=== PATIENT | female | born 2000 | race Two or more races ===

== ENCOUNTER 2018-06-11 04:50 | Emergency (ER) | payer OTHER, MEDICAID ==
[2018-06-11] MEDS ORDERED: Al Hydrox/Mg Hydrox/Simet LIQ* 30 ML UDC PO ONE (05:17)
[2018-06-11] MEDS ORDERED: Lidocaine 2% VISCOUS* 15 ML UDC PO ONE (05:17)
--- NOTE | 2018-06-11 05:17 | ED ---
Abdominal Pain/Female - HPI Summary HPI Summary: A 18 y/o F presents to ED with c/o constant abd pain onset yesterday afternoon and not improving. Pain is described as sharp. She ate Slov[place] food tonight that did make it worse. Denies fever, chills, urinary sx, melena. She states she has had abd pain due to stress previously as well as diarrhea. She's having episodes of diarrhea which are usual. Shes had prelim exams this week. She is a [employer] student. [facility]: Currently. No past abd surgeries. - History of Current Complaint Chief Complaint: EDAbdPain Stated Complaint: ABD PAIN Time Seen by Provider: 06/11/18 05:05 Hx Obtained From: Patient, Other: - friend present Onset/Duration: Gradual Onset, Lasting Hours Timing: Constant Severity Initially: Moderate Severity Currently: Moderate Pain Intensity: 5 Pain Scale Used: 0-10 Numeric Location: Diffuse Character: Sharp Aggravating Factor(s): Food Associated Signs and Symptoms: Positive: Other: - neg: chills, melena. Negative : Fever, Urinary Symptoms Allergies/Adverse Reactions: Allergies Allergy/AdvReac Type Severity Reaction Status Date / Time No Known Allergies Allergy Verified 06/11/18 04:55 PMH/Surg Hx/FS Hx/Imm Hx Previously Healthy: Yes Sensory History: Denies: Hx Deafness Opthamlomology History: Denies: Hx Legally Blind EENT History: Denies: Hx Deafness Infectious Disease History: No Infectious Disease History: Denies: Traveled Outside the [place] in Last 30 Days - Social History Occupation: Student Lives: Dormitory/Roommates Review of Systems Negative: Fever, Chills Positive: Abdominal Pain, Other - neg: melena Negative: dysuria, hematuria All Other Systems Reviewed And Are Negative: Yes Physical Exam - Summary Physical Exam Summary: Appearance: Well-appearing, Well-nourished, lying in bed comfortably Skin: Warm, dry, no obvious rash Eyes: sclera anicteric, no conjunctival pallor ENT: mucous membranes moist, pharynx appears normal Neck: Supple, nontender Respiratory: Clear to auscultation, no signs of respiratory distress Cardiovascular: Normal S1, S2. No murmurs. Normal distal pulses in tibial and radial bilaterally. Abdomen: Soft, normal active bowel sounds present. Mild epigastric tenderness without peritoneal signs. Musculoskeletal: Normal, Strength/ROM Intact Neurological: A&Ox3, awake and alert, mentation is normal, speech is fluent and appropriate Psychiatric: affect is normal, does not appear anxious or depressed Triage Information Reviewed: Yes Vital Signs On Initial Exam: Initial Vitals Temp Pulse Resp BP Pulse Ox 97.4 F 95 16 131/79 100 06/11/18 04:53 06/11/18 04:53 06/11/18 04:53 06/11/18 04:53 06/11/18 04:53 Vital Signs Reviewed: Yes Diagnostics - Vital Signs Vital Signs Temp Pulse Resp BP Pulse Ox 06/11/18 04:53 97.4 F 95 16 131/79 100 - Laboratory Result Diagrams: 06/11/18 05:48 06/11/18 05:48 Lab Statement: Any lab studies that have been ordered have been reviewed, and results considered in the medical decision making process. Abdominal Pain Fem Course/Dx - Course Course Of Treatment: Pt is a 18 y/o F presenting with constant, sharp abd pain onset yesterday afternoon and not improving. Pt is a [employer] student and she notes a lot of stress recently. PE showed mild epigastric tenderness but no peritoneal signs. Bloodwork is unremarkable. UA shows 1+ RBC and 1+ blood. Her pain appears to be functional and she does not have a concerning history or exam for serious intra-abdominal process. Lab work is reassuringly unremarkable. Patient is feeling better after a GI cocktail. I believe she is stable for discharge home, and asked her to take antacids or perhaps Pepcid when she has symptoms. Pt will be discharged to f/u with PCP. Pt is hemodynamically stable and A&Ox3. - Diagnoses Provider Diagnoses: Gastritis Discharge - Sign-Out/Discharge Documenting (check all that apply): Patient Departure - DC - Discharge Plan Condition: Improved Disposition: HOME Patient Education Materials: Gastritis (ED) Referrals: [facility] - [place] [Primary Care Provider] - - Billing Disposition and Condition Condition: IMPROVED Disposition: Home - Attestation Statements Document Initiated by Scribe: Yes Documenting Scribe: Nahid Pitts Provider For Whom Scribe is Documenting (Include Credential): Dr. Timothy Darling MD Scribe Attestation: I, Nahid Pitts, scribed for Dr. Timothy Darling MD on 06/11/18 at 0650. Scribe Documentation Reviewed: Yes Provider Attestation: The documentation as recorded by the scribe, Nahid Pitts accurately reflects the service I personally performed and the decisions made by me, Dr. Timothy Darling MD
[2018-06-11 06:00] LABS: ABS Basophils 0.1 10^3/ul (0-0.2); ABS Eosinophils 0.1 10^3/ul (0-0.6); ABS Lymphocytes 2.2 10^3/ul (1.0-4.8); ABS Monocytes 0.6 10^3/ul (0-0.8); ABS Neutrophils 4.9 10^3/ul (1.5-7.7); ABS Nucleated RBC 0 10^3/ul; Eosinophil % 1.5 % (0-6); Hematocrit 37 % (35-47); Hemoglobin 12.6 g/dl (12.0-16.0); Lymphocyte % 27.4 % (25-47); Mean Corpuscular HGB Conc 34 g/dl (31-36); Mean Corpuscular Hemoglobin 29 pg (27-31); Mean Corpuscular Volume 85 fL (80-97); Mean Platelet Volume 8.2 um3 (7.4-10.4); Nucleated Red Blood Cells % 0.1; Platelet Count 276 10^3/ul (150-450); Red Cell Distribution Width 14 % (10.5-15); White Blood Count 7.9 10^3/ul (3.5-10.8)
[2018-06-11 06:26] LABS: EGFR Non-African American 150.3 (>60)
[2018-06-11 06:42] LABS: Urine Appearance Cloudy; Urine Blood 1+ (Negative); Urine Color Yellow; Urine Ketones Negative (Negative); Urine Protein Negative (Negative); Urine Red Blood Cell 1+(3-5/hpf) (Absent); Urine Specific Gravity 1.011 (1.010-1.030); Urine Urobilinogen Negative (Negative); Urine White Blood Cell Trace(0-5/hpf) (Absent)
[2018-06-11 07:00] VITALS: BP 136/88
== END 2018-06-11 06:59 | disposition home or self-care (01) ==
LOC: ED 04:50
DX: K29.70 Gastritis, unspecified, without bleeding (principal); R10.9 Unspecified abdominal pain
CPT/HCPCS: 36415; 80053; 81003; 81015; 83690; 84702; 85025; 87086; 99282; A9270-GY

== ENCOUNTER 2019-10-24 04:35 | Emergency (ER) | payer OTHER, MEDICAID ==
--- NOTE | 2019-10-24 04:37 | ED ---
Substance Abuse/Use - HPI Summary HPI Summary: 19 year old F brought in by EMS to [facility] complains of nausea/vomiting since minutes prior to arrival. Patient has been consuming ETOH. EMS states patient started consuming ETOH at 2245 10/23/2019. EMS states roommates were uncomfortable with patient vomiting so they called EMS. - History Of Current Complaint Stated Complaint: ETOH PER EMS Time Seen by Provider: 10/24/19 04:36 Hx Obtained From: Patient, EMS Severity Currently: None Aggravating Factor(s): Nothing Alleviating Factor(s): Nothing Associated Signs And Symptoms: Nausea, Vomiting - Allergies/Home Medications Allergies/Adverse Reactions: Allergies Allergy/AdvReac Type Severity Reaction Status Date / Time No Known Allergies Allergy Verified 06/11/18 04:55 PMH/Surg Hx/FS Hx/Imm Hx Sensory History: Denies: Hx Legally Blind, Hx Deafness Opthamlomology History: Denies: Hx Legally Blind EENT History: Denies: Hx Deafness - Surgical History Surgical History: None - Family History Known Family History: Negative: Seizure Disorder - Social History Alcohol Use: Rare Substance Use Type: Reports: None Smoking Status (MU): Never Smoked Tobacco Review of Systems Positive: Vomiting, Nausea Positive: Other - ETOH intoxication All Other Systems Reviewed And Are Negative: Yes Physical Exam - Summary Physical Exam Summary: Appearance: Well-appearing, Well-nourished, lying in bed comfortably. Patient is not actively vomiting. Skin: Warm, dry, no obvious rash Eyes: sclera anicteric, no conjunctival pallor ENT: mucous membranes moist, pharynx appears normal Neck: Supple, nontender Respiratory: Clear to auscultation, no signs of respiratory distress Cardiovascular: Normal S1, S2. No murmurs. Normal distal pulses in tibial and radial bilaterally. Abdomen: Soft, nontender, normal active bowel sounds present Musculoskeletal: Normal, Strength/ROM Intact Neurological: Patient is awake, alert, and oriented. She is answer questions appropriately. Psychiatric: Affect is normal, does not appear anxious or depressed Triage Information Reviewed: Yes Vital Signs Reviewed: Yes Procedures - Sedation Patient Received Moderate/Deep Sedation with Procedure: No Re-Evaluation - Re-Evaluation First Eval Re-Evaluation Time: 07:10 Change: Improved Comment: A&O x3, clinically sober, answering questions appropriately, ready for d/c Course/Dx - Course Course Of Treatment: 19 y/o F presents with nausea/vomiting after drinking ETOH hours prior to arrival. Upon exam, the patient is awake, alert, and oriented, and answering questions appropriately. She is not actively vomiting. Patient will be signed out to Dr. Harp upon shift change 10/24/2019 0700 pending clinical sobriety, reevaluation and disposition. - Diagnoses Provider Diagnoses: Alcohol intoxication Discharge ED - Sign-Out/Discharge Documenting (check all that apply): Sign-Out Patient Signing out patient TO: Mark Harp - Discharge Plan Condition: Improved Disposition: HOME Patient Education Materials: Alcohol Intoxication (ED) Referrals: [facility] - [place] [Primary Care Provider] - If Needed Additional Instructions: Follow up with your primary care provider in 2-3 days. Return to the emergency department for any new or worsening symptoms. - Billing Disposition and Condition Condition: IMPROVED Disposition: Home - Attestation Statements Document Initiated by Scribe: Yes Documenting Scribe: Denice Vaughn Provider For Whom Young is Documenting (Include Credential): Timothy Darling MD Scribe Attestation: Denice Martinez, scribed for Timothy Darling MD on 10/27/19 at 0636. Scribe Documentation Reviewed: Yes Provider Attestation: The documentation as recorded by the Denice taylor accurately reflects the service I personally performed and the decisions made by Timothy meza MD Status of Scribe Document: Viewed
--- NOTE | 2019-10-24 07:10 | ED ---
Progress - Progress Note Progress Note: The patient is a sign-out from Dr. Timothy Darling MD, to Dr. Mark Harp MD , at change of shift at 0700 on 10/24/2019, pending sobriety, re-evaluation, and disposition. Patient is awake, alert, and oriented. She is clinically sober, answering questions appropriately. She admittedly drank too much alcohol. She is safe for discharge. Re-Evaluation - Re-Evaluation First Eval Re-Evaluation Time: 07:10 Change: Improved Comment: A&O x3, clinically sober, answering questions appropriately, ready for d/c Course/Dx - Course Course Of Treatment: The patient is a sign-out from Dr. Timothy Darling MD, to Dr. Mark Harp MD, at change of shift at 0700 on 10/24/2019, pending sobriety , re-evaluation, and disposition. Patient is awake, alert, and oriented. She is clinically sober, answering questions appropriately. She admittedly drank too much alcohol. She is safe for discharge. - Diagnoses Provider Diagnoses: Alcohol intoxication Discharge ED - Sign-Out/Discharge Documenting (check all that apply): Patient Departure - Patient will be discharged home., Receiving Sign-Out Receiving patient FROM: Timothy Darling - Patient is a sign-out from Dr. Timothy Darling MD, at 0700 on 10/24/2019, pending sobriety, re-evaluation, and disposition. - Discharge Plan Condition: Improved Disposition: HOME Patient Education Materials: Alcohol Intoxication (ED) Referrals: [facility] [place] [Primary Care Provider] - If Needed Additional Instructions: Follow up with your primary care provider in 2-3 days. Return to the emergency department for any new or worsening symptoms. - Billing Disposition and Condition Condition: IMPROVED Disposition: Home - Attestation Statements Document Initiated by Lorenzaibe: Yes Documenting Scribe: Ally Bonds Provider For Whom Young is Documenting (Include Credential): Dr. Mark Harp MD Scribe Attestation: Ally Martinez scribed for Dr. Mark Harp MD on 10/24/19 at 0825. Scribe Documentation Reviewed: Yes Provider Attestation: The documentation as recorded by the Ally taylor accurately reflects the service I personally performed and the decisions made by me, Dr. Mark Harp MD Status of Scribe Document: Viewed Procedures - Sedation Patient Received Moderate/Deep Sedation with Procedure: No
[2019-10-24 07:59] VITALS: BP 111/60
== END 2019-10-24 07:59 | disposition home or self-care (01) ==
LOC: ED 04:35
DX: F10.129 Alcohol abuse with intoxication, unspecified (principal); R11.2 Nausea with vomiting, unspecified
CPT/HCPCS: 99282